=== PATIENT | male | born 1975 | race Caucasian/White ===

== ENCOUNTER 2021-03-19 09:02 | Emergency (ER) | payer SELFPAY ==
--- NOTE | 2021-03-19 09:00 | DI.RAD_ITS ---
Exam(s) XR THUMB LT EXAM: XR THUMB LT CLINICAL HISTORY: saw vs thumb. TECHNIQUE: 2D digital imaging was performed. COMPARISON: No exams were available for comparison FINDINGS: There is a well-defined defect in the dorsal-medial aspect of the mid distal phalanx thumb. No displ aced fracture. On the lateral view there is a tiny 1 millimeter osteophytic density just volar to th is in the soft tissues. Injury does not appear to involve the interphalangeal joint. There is overl patricia skin avulsion. There is no metallic foreign body. IMPRESSION: DATA REPOSITORY: RADIATION DOSE DELIVERED:
[2021-03-19 09:09] VITALS: BP 109/76; PULSE 75; RESP 18; TEMP 36.6; O2SAT 92
--- NOTE | 2021-03-19 09:23 | ED.GENADUL_ITS ---
Discharge Plan Disposition Patient Disposition: HOME Condition: Stable Discharge Details Clinical Impression: Open fracture of left thumb Primary Care Provider: Unknown,Unknown ED Provider: Mick Hull Home Meds and New Rx's Prescriptions: New cephalexin 500 mg capsule 500 mg PO QID 5 Days Qty: 20 RF: 0 Discharge Instructions Instructions: Laceration (ED), Thumb Fracture (ED) Additional Instructions: Keflex as directed. Rest, elevate, cool compresses as tolerated. [id number] Tylenol and/or Motrin as directed for discomfort. Change initial dressing in approximately 36 hours, then change at least daily. I have placed you on the orthopedic list, I recommend calling their office tomorrow to set up an appointment in the next week or so. Sutures should come out in the next 7-10 days. Please watch for new or worsening symptoms and return to the ER for any concerns Referrals: John Espinal MD [ [facility] STAFF PHYSICIAN] - Medical Decision Making Is a 45-year-old male, [id number] presents with a left thumb injury, thumb versus sawblade. Will update tetanus, obtain x-ray, repair laceration. X-ray reveals fracture, will treat as open fracture and initiate Keflex therapy. Laceration repaired without difficulty. Injury to his involve the nailbed but there is no laceration on the nailbed to repair. Given patient has an open fracture will place on the orthopedic list to help expedite outpatient care. Patient tolerated digital block and laceration repair without difficulty. Antibiotic dressing applied, then a vulvar AlumaFoam splint applied. Patient tolerated well. Imaging Data Radiologic Study: Attestation: I personally reviewed and interpreted this imaging study as follows: Imaging: X-Ray Radiologist's impression: There is a well-defined defect] in the dorsal- medial aspect of the mid distal phalanx thumb. No displaced fracture. On the lateral view there is a tiny 1 millimeter osteophytic density just volar to this in the soft tissues. Injury does not appear to involve the interphalangeal joint. There is overlying skin avulsion. There is no metallic foreign body. HPI General Mode of arrival: ambulatory . Date/Time Provider Initiated Documentation: 03/19/21 09:11 . Limitations to Documentation: no limitations . Information obtained by: patient . HPI Narrative: This is a 45-year-old gentleman, [id number], presenting for a left thumb injury that he sustained at work just prior to arrival, sawblade versus thumb. Reports moderate pain, denies any other injury, numbness, tingling, weakness. Tetanus status is not up-to-date. Has not taken any medication prior to arrival. Related Data Home Medications Medication Instructions Recorded Confirmed cephalexin 500 mg PO QID 5 Days #20 cap 03/19/21 Previous Rx's Medication Instructions Recorded cephalexin 500 mg PO QID 5 Days #20 cap 03/19/21 Allergies Allergy/AdvReac Type Severity Reaction Status Date / Time No Known Allergies Allergy Unverified 03/19/21 09:12 General Stated Complaint: Laceration CELIO: 4 Review of Systems Constitutional Constitutional: Denies weakness Musculoskeletal Musculoskeletal: Denies arthralgias, Denies numbness and Denies tingling Integumentary/Breasts Skin/Breast: Denies erythema Neurologic Neurologic: Denies numbness, Denies tingling and Denies weakness [facility] Social History Smoking/Tobacco Use Status: Former Tobacco Use Smoking risk assessment performed?: Yes Alcohol Intake: current Alcohol Intake frequency: 3 or more drinks per day Drug use: Never Substance use type: does not use Do you feel safe at home: Yes Do you feel safe in your relationship?: Yes Exam Const General: cooperative, healthy appearing, comfortable and no acute distress Orientation: alert and awake [facility] Head: normal to inspection, normocephalic and atraumatic Eyes General: appearance normal, both eyes and all related structures Conjunctivae: conjunctivae normal Neck Neck: normal visual inspection, trachea midline and supple Resp Effort & Inspection: normal respiratory effort and able to speak in complete sentences Cardio Rate: regular rate Rhythm: regular rhythm Skin General skin exam: no rashes or lesions noted Neuro General: patient alert, patient awake, moves all extremities and no focal motor deficits Sensory Exam: no sensory deficits noted Extrem General: full ROM and capillary refill normal Hand/finger images: 1. There is a 1-1/2 cm laceration just medial of the proximal nail bed. The proximal and medial half of the nail has been removed and the nailbed is exposed, there is no obvious laceration through the nailbed. Full extension and flexion. 5/5 strength. Normal capillary refill. Neuro, vascular, tendon intact. Psych Appearance: grossly normal Mental Status: mental status grossly normal Course Vital Signs Vital signs: Vital Signs Temperature 36.6 C 03/19/21 09:09 Pulse 75 03/19/21 09:09 Respiratory Rate 18 03/19/21 09:09 Blood Pressure 109/76 03/19/21 09:09 Pulse Oximetry 92 03/19/21 09:09 Temperature 36.6 C 03/19/21 09:09 Temperature Source Temporal Artery Scan 03/19/21 09:09 Pulse 75 03/19/21 09:09 Respiratory Rate 18 03/19/21 09:09 Respiratory Effort Non-Labored 03/19/21 09:14 Blood Pressure 109/76 03/19/21 09:09 Blood Pressure Position Sitting 03/19/21 09:09 Pulse Oximetry 92 03/19/21 09:09 Oxygen Delivery Method Room Air 03/19/21 09:09 Oxygen Flow Rate 0 03/19/21 09:09 Pain Level 10 03/19/21 09:13 Procedures Laceration Laceration 1: Site: hand Side (If applicable): left Size (cm): 1.5 Description: irregular and clean Depth: simple, single layer Local Anesthetic: Lidocaine 1%, Bupivicaine 0.5% and other anesthetic ([id number] mixture) Amount of anesthesia used (mL): 8 Pre-repair: wound explored, irrigated extensively and deep structures intact Skin layer closed with: nylon Size (cm): 4-0 Number of sutures: 3 Technique: simple, interrupted
[2021-03-19] MEDS: Bupivacaine 0.5% Pres-Free 30 ML VIAL (10:06)
== END 2021-03-19 10:50 | disposition home or self-care (01) ==
PROVIDERS: Emergency Provider Physician Assistant
DX: S62.522B Displaced fracture of distal phalanx of left thumb, initial encounter for open fracture (principal); S61.112A Laceration without foreign body of left thumb with damage to nail, initial encounter; W31.2XXA Contact with powered woodworking and forming machines, initial encounter; Y99.0 Civilian activity done for income or pay
CPT/HCPCS: 12001; 26750; 90471; 73140

== ENCOUNTER 2021-04-25 13:24 | Outpatient (CLI) | payer SELFPAY ==
--- NOTE | 2021-04-25 13:15 | DI.RAD_ITS ---
Exam(s) XR THUMB LT EXAM: XR THUMB LT CLINICAL HISTORY: left thumb fracture. TECHNIQUE: 2D digital imaging was performed. COMPARISON: CR XR THUMB LT from 03/19/2021 FINDINGS: The previously described probable probable saw induced osseous defect in the distal phalanx is again noted and appears stable, unchanged. There is no true through and through fracture here. No displac ement. No radiographic evidence of osteomyelitis. No metallic foreign body. IMPRESSION: DATA REPOSITORY: RADIATION DOSE DELIVERED:
== END 2021-04-25 13:25 | disposition home or self-care (01) ==
LOC: DIORS 13:24
PROVIDERS: Visit Provider Physician Assistant
DX: S62.502B Fracture of unspecified phalanx of left thumb, initial encounter for open fracture (principal); X58.XXXA Exposure to other specified factors, initial encounter
CPT/HCPCS: 73140